=== PATIENT | female | born 1945 | race Caucasian/White ===

== ENCOUNTER 2016-12-26 12:02 | Emergency (ER) | payer MEDICARE ==
[2016-12-26 12:23] VITALS: RESP 18
[2016-12-26] MEDS ORDERED: SODIUM CHLORIDE 0.9% 1,000 ML IV STA ×3 (12:44→13:52)
[2016-12-26 13:03] LABS: Basophils % (A) 1 %; CH 31.2; CHCM 33.1; Eosinophils # (A) 0.1 k/uL (0-0.7); Eosinophils % (A) 2 %; HCT 45.8 % (34.0-46.0); HGB 14.6 gm/dL (11.4-16.0); Luc % (Auto) 2; Lymphocytes % (A) 18 %; MCH 30.2 pg (25.0-35.0); MCHC 31.9 g/dL (31.0-37.0); MCV 94.6 fL (80.0-100.0); Mean Platelet Volume 7.5; Monocytes # (A) 0.3 k/uL (0-1.0); Monocytes % (A) 6 %; Neutrophils # (A) 4.2 k/uL (1.3-7.7); Neutrophils % (A) 72 %; RBC 4.84 m/uL (3.80-5.40); WBC 5.8 k/uL (3.8-10.6); WBC (Perox) 5.58
[2016-12-26 13:06] LABS: Appearance,Urine Cloudy (Clear); Bacteria,Urine Rare /hpf; Bilirubin,Urine Negative (Negative); Glucose,Urine (UA) Negative (Negative); Ketones,Urine Trace (Negative); Leukocyte Esterase,Urine Large (Negative); Mucus,Urine Many /hpf; Nitrite,Urine Negative (Negative); PH, Urine 5.5 (5.0-8.0); Particle Count 17006; Protein,Urine 1+ (Negative); RBC,Urine 13 /hpf (0-5); Specific Gravity,Urine 1.024 (1.001-1.035); UA Billing (MACRO vs. MICRO) MICRO; WBC,Urine >182 /hpf (0-5)
[2016-12-26 13:17] LABS: ALT 25 U/L (9-52); AST 25 U/L (14-36); Alkaline Phosphatase 77 U/L (38-126); Anion Gap 11 mmol/L; Blood Urea Nitrogen 18 mg/dL (7-17); Calcium 9.8 mg/dL (8.4-10.2); Carbon Dioxide 28 mmol/L (22-30); Chloride 104 mmol/L (98-107); Glucose 126 mg/dL (74-99); Magnesium 2.2 mg/dL (1.6-2.3); Non-African American GFR(MDRD) >60 (>60 ml/min/1.73 sqM); Potassium 3.8 mmol/L (3.5-5.1); Sodium 143 mmol/L (137-145); Total Bilirubin 0.7 mg/dL (0.2-1.3); Total Protein 7.4 g/dL (6.3-8.2)
[2016-12-26 13:24] LABS: Partial Thromboplastin Time 21.2 sec (22.0-30.0); Prothrombin Time 10.2 sec (9.0-12.0)
[2016-12-26 13:25] LABS: Creatine Kinase 76 U/L (30-135)
[2016-12-26 13:28] LABS: Glucose,Whole Blood 133 mg/dL (75-99)
[2016-12-26 13:38] LABS: Creatine Kinase MB 0.5 ng/mL (0.0-2.4); Troponin I <0.012 ng/mL (0.000-0.034)
--- NOTE | 2016-12-26 13:46 | ED ---
General Adult HPI - General Chief complaint: Syncope Stated complaint: syncope Time Seen by Provider: 12/26/16 12:44 Source: patient, RN notes reviewed, old records reviewed Mode of arrival: ambulatory Limitations: no limitations - History of Present Illness Initial comments: This is a 71-year-old female to the ER status post syncopal event, patient was doing some crocheting class and became lightheaded and dizzy. First and patient 's friends she recoup, she was lowered to the ground an was apparently passed out for her own 5 minutes. No seizure-like activity. Patient states he follow little lightheaded but this time and now denies headache chest pain shortness of breath or abdominal pain. She does have a remote history of syncope with about 4 episodes in the last 6 years, no prior evaluation. - Related Data Home Medications Medication Instructions Recorded Confirmed Cyanocobalamin [Vitamin B-12] 500 mcg PO DAILY 12/26/16 12/26/16 Allergies Allergy/AdvReac Type Severity Reaction Status Date / Time No Known Allergies Allergy Unverified 12/26/16 13:06 Review of Systems ROS Statement: Those systems with pertinent positive or pertinent negative responses have been documented in the HPI. ROS Other: All systems not noted in ROS Statement are negative. Past Medical History Past Medical History: No Reported History History of Any Multi-Drug Resistant Organisms: None Reported Past Surgical History: Appendectomy, Hysterectomy Past Psychological History: No Psychological Hx Reported Smoking Status: Never smoker Past Alcohol Use History: Occasional Past Drug Use History: None Reported General Exam Limitations: no limitations General appearance: alert, in no apparent distress Head exam: Present: atraumatic, normocephalic, normal inspection Eye exam: Present: normal appearance, PERRL, EOMI. Absent: scleral icterus, conjunctival injection, periorbital swelling ENT exam: Present: normal exam, mucous membranes moist Neck exam: Present: normal inspection. Absent: tenderness, meningismus, lymphadenopathy Respiratory exam: Present: normal lung sounds bilaterally. Absent: respiratory distress, wheezes, rales, rhonchi, stridor Cardiovascular Exam: Present: regular rate, normal rhythm, normal heart sounds. Absent: systolic murmur, diastolic murmur, rubs, gallop, clicks GI/Abdominal exam: Present: soft, normal bowel sounds. Absent: distended, tenderness, guarding, rebound, rigid Extremities exam: Present: normal inspection, full ROM, normal capillary refill. Absent: tenderness, pedal edema, joint swelling, calf tenderness Back exam: Present: normal inspection Neurological exam: Present: alert, oriented X3, CN II-XII intact Psychiatric exam: Present: normal affect, normal mood Skin exam: Present: warm, dry, intact, normal color. Absent: rash Course Vital Signs 12/26/16 12/26/16 12/26/16 12:20 12:41 13:15 Temperature 97.9 F Pulse Rate 58 L 58 L Pulse Rate [ 62 Varnisher ] Respiratory 18 18 Rate Blood Pressure 120/70 122/61 O2 Sat by Pulse 99 Oximetry 12/26/16 12/26/16 13:47 14:49 Temperature Pulse Rate 54 L 56 L Pulse Rate [ Varnisher ] Respiratory 18 18 Rate Blood Pressure 126/61 149/72 O2 Sat by Pulse 98 100 Oximetry Medical Decision Making - Medical Decision Making 71 female presents today with syncopal episode weakness. Patient at this time is feeling improved with IV hydration, positive urine check infection, I will she with appropriate antibiotics for discharge home - Lab Data Result diagrams: 12/26/16 12:35 12/26/16 12:35 Lab Results 12/26/16 12/26/16 12/26/16 Range/Units 12:34 12:35 12:35 WBC 5.8 (3.8-10.6) k/uL RBC 4.84 (3.80-5.40) m/uL Hgb 14.6 (11.4-16.0) gm/dL Hct 45.8 (34.0-46.0) % MCV 94.6 (80.0-100.0) fL MCH 30.2 (25.0-35.0) pg MCHC 31.9 (31.0-37.0) g/dL RDW 13.0 (11.5-15.5) % Plt Count 264 (150-450) k/uL Neutrophils % 72 % Lymphocytes % 18 % Monocytes % 6 % Eosinophils % 2 % Basophils % 1 % Neutrophils # 4.2 (1.3-7.7) k/uL Lymphocytes # 1.0 (1.0-4.8) k/uL Monocytes # 0.3 (0-1.0) k/uL Eosinophils # 0.1 (0-0.7) k/uL Basophils # 0.0 (0-0.2) k/uL PT (9.0-12.0) sec INR (<1.1) APTT (22.0-30.0) sec D-Dimer (<0.60) mg/L FEU Sodium (137-145) mmol/L Potassium (3.5-5.1) mmol/L Chloride (98-107) mmol/L Carbon Dioxide (22-30) mmol/L Anion Gap mmol/L BUN (7-17) mg/dL Creatinine (0.52-1.04) mg/dL Est GFR (MDRD) Af Amer (>60 ml/min/1.73 sqM) Est GFR (MDRD) Non-Af (>60 ml/min/1.73 sqM) Glucose (74-99) mg/dL POC Glucose (mg/dL) 133 H (75-99) mg/dL POC Glu Mental Health Practitioner ID Anger, Kasie Calcium (8.4-10.2) mg/dL Magnesium (1.6-2.3) mg/dL Total Bilirubin (0.2-1.3) mg/dL AST (14-36) U/L ALT (9-52) U/L Alkaline Phosphatase (38-126) U/L Total Creatine Kinase 76 (30-135) U/L CK-MB (CK-2) 0.5 (0.0-2.4) ng/mL CK-MB (CK-2) Rel Index 0.7 Troponin I <0.012 (0.000-0.034) ng/mL Total Protein (6.3-8.2) g/dL Albumin (3.5-5.0) g/dL Urine Color Urine Appearance (Clear) Urine pH (5.0-8.0) Ur Specific [place] (1.001-1.035) Urine Protein (Negative) Urine Glucose (UA) (Negative) Urine Ketones (Negative) Urine Blood (Negative) Urine Nitrite (Negative) Urine Bilirubin (Negative) Urine Urobilinogen (<2.0) mg/dL Ur Leukocyte Esterase (Negative) Urine RBC (0-5) /hpf Urine WBC (0-5) /hpf Urine Bacteria (None) /hpf Hyaline Casts (0-2) /lpf Urine Mucus (None) /hpf 05/07/0412/26/16 12/26/16 Range/Units 12:35 12:35 12:35 WBC (3.8-10.6) k/uL RBC (3.80-5.40) m/uL Hgb (11.4-16.0) gm/dL Hct (34.0-46.0) % MCV (80.0-100.0) fL MCH (25.0-35.0) pg MCHC (31.0-37.0) g/dL RDW (11.5-15.5) % Plt Count (150-450) k/uL Neutrophils % % Lymphocytes % % Monocytes % % Eosinophils % % Basophils % % Neutrophils # (1.3-7.7) k/uL Lymphocytes # (1.0-4.8) k/uL Monocytes # (0-1.0) k/uL Eosinophils # (0-0.7) k/uL Basophils # (0-0.2) k/uL PT 10.2 (9.0-12.0) sec INR 1.0 (<1.1) APTT 21.2 L (22.0-30.0) sec D-Dimer 0.29 (<0.60) mg/L FEU Sodium 143 (137-145) mmol/L Potassium 3.8 (3.5-5.1) mmol/L Chloride 104 (98-107) mmol/L Carbon Dioxide 28 (22-30) mmol/L Anion Gap 11 mmol/L BUN 18 H (7-17) mg/dL Creatinine 0.70 (0.52-1.04) mg/dL Est GFR (MDRD) Af Amer >60 (>60 ml/min/1.73 sqM) Est GFR (MDRD) Non-Af >60 (>60 ml/min/1.73 sqM) Glucose 126 H (74-99) mg/dL POC Glucose (mg/dL) (75-99) mg/dL POC Glu Mental Health Practitioner ID Calcium 9.8 (8.4-10.2) mg/dL Magnesium 2.2 (1.6-2.3) mg/dL Total Bilirubin 0.7 (0.2-1.3) mg/dL AST 25 (14-36) U/L ALT 25 (9-52) U/L Alkaline Phosphatase 77 (38-126) U/L Total Creatine Kinase (30-135) U/L CK-MB (CK-2) (0.0-2.4) ng/mL CK-MB (CK-2) Rel Index Troponin I (0.000-0.034) ng/mL Total Protein 7.4 (6.3-8.2) g/dL Albumin 4.4 (3.5-5.0) g/dL Urine Color Yellow Urine Appearance Cloudy H (Clear) Urine pH 5.5 (5.0-8.0) Ur Specific [place] 1.024 (1.001-1.035) Urine Protein 1+ H (Negative) Urine Glucose (UA) Negative (Negative) Urine Ketones Trace H (Negative) Urine Blood Small H (Negative) Urine Nitrite Negative (Negative) Urine Bilirubin Negative (Negative) Urine Urobilinogen 2.0 (<2.0) mg/dL Ur Leukocyte Esterase Large H (Negative) Urine RBC 13 H (0-5) /hpf Urine WBC >182 H (0-5) /hpf Urine Bacteria Rare H (None) /hpf Hyaline Casts 18 H (0-2) /lpf Urine Mucus Many H (None) /hpf Disposition Clinical Impression: Vasovagal syncope, UTI (urinary tract infection), Dehydration Disposition: HOME SELF-CARE Condition: Good Instructions: Urinary Tract Infection in Women (ED), Dehydration (ED) Referrals: Darius Moore MD [Primary Care Provider] - 1-2 days
[2016-12-26 15:42] VITALS: BP 134/75; PULSE 57; TEMP 97.6
== END 2016-12-26 15:45 | disposition home or self-care (01) ==
LOC: EC 12:02
DX: E86.0 Dehydration (principal); N39.0 Urinary tract infection, site not specified; R55 Syncope and collapse; Z79.899 Other long term (current) drug therapy
CPT/HCPCS: 36415; 93005; 85379; 80053; 82550; 82553; 83735; 84484; 85025; 85610; 85730; 81001; 99284; 96365; 96361; J0696

== ENCOUNTER → 2019-02-26 | Outpatient (CLI) | payer MEDICARE ==
--- NOTE | 2019-03-01 07:44 | MM ---
Reason for exam: clinical finding. History: Benign excisional biopsy, 1989. Implants in both breasts. Indicated problem(s): breast implant problem and pain in both breasts. Palpable abnormality in the right breast. Physical Findings: Breast exam performed by Dr. Mayer. MG Diag Mamm Implants TONYA w CAD Bilateral CC, MLO, and ID view(s) were taken. No prior studies available for comparison. The breast tissue is heterogeneously dense. This may lower the sensitivity of mammography. Finding: There is a 7 mm circumscribed lobulated mass in the lower inner quadrant, middle position of the left breast. Bilateral breast prothesis, may have calcification on right. These may have small localized ruptures adjacent to prothesis. These results were verbally communicated with the patient and result sheet given to the patient on 02/26/19. ASSESSMENT: Probably benign, BI-RAD 3 RECOMMENDATION: Follow-up diagnostic mammogram of the left breast in 6 months.
== END | disposition home or self-care (01) ==
LOC: RADMAMWWP 15:28
PROVIDERS: ATTEND Surgery
DX: N64.4 Mastodynia (principal); Z98.82 Breast implant status
CPT/HCPCS: 77066

== ENCOUNTER → 2019-02-26 | Outpatient (CLI) | payer MEDICARE ==
[2019-02-26 14:31] VITALS: BP 109/70; PULSE 61; RESP 16; TEMP 97.7; BMI 22.2
--- NOTE | 2019-02-26 15:24 | P.GSHP ---
History of Present Illness H&P Date: 02/26/19 Chief Complaint: mass in her right breast Rosalia is a 73-year-old white female who presents for breast evaluation. In June 2018 she noted a nodule in the inferior aspect of the right breast. Of importance is the fact that Janny had bilateral sub-glandular implants placed in 1977. She is uncertain as to whether these are saline or silicone implants. However, she has had pain related to the implants she states that she has had tenderness since the mid . The pain has increased since that time. She was told she had contractures around the implants. She did not have them removed as she did not want further surgery at that time. She has most recently had an MRI of both breasts which revealed the breast implants in the pectoral location and appeared to be saline with no rupture. Additionallysuspicious mass or abnormal enhancement of the right or left breast to suggest cancer. No focal abnormality was seen at the marker over the patient's present finding was noted. The patient also had an ultrasound of the right breast. This revealed an area of e xtracapsular calcification measuring 1.4 cm. There was a second similar area in the 5 o'clock position 8 cm from the nipple. Nothing on the ultrasound was seen to correspond with the 9:00 lesion in the breast which was felt to be palpable. Both the MRI and ultrasound recommended a mammogram be performed. The patient has not had a mammogram as she is concerned that this may result in rupture of the implants. Patient eats a vegan diet, and has recently noted hair loss. She recently started supplements Bioten and B12, Vit D and E. Family History: sister: esophageal sister: cervical brother: leukemia Hormonal History: menarche: 16 breast fed: yes, first at 21 menopause: Endometriosis resulting in a hysterectomy in her 30s, took one ovary BCP: 5 years hormones: 1-2 years Surgical history: 1. Bilateral breast implants 2. Appendectomy 3. Hysterectomy in 1 ovary removed 4. Laparoscopic surgery to remove endometrial tissue. Medical history: 1. back pain 2. scolosis 3. arthritis Social History: smoke: none alcohol: 1 glass/week drugs: none - Constitutional Constitutional: Denies chills, Denies fever - EENT Comment: cataract surgery, lasix surgery Ears: bilateral: tinnitus Ears, nose, mouth and throat: Denies headache, Denies sore throat - Breasts Breasts: bilateral: as per HPI - Cardiovascular Cardiovascular: Denies chest pain, Denies shortness of breath - Respiratory Respiratory: Denies cough, Denies 7 - Gastrointestinal Gastrointestinal: Denies abdominal pain, Denies diarrhea, Denies nausea, Denies vomiting - Genitourinary (Female) Comment: UTI Genitourinary: Denies dysuria, Denies hematuria - Menstruation Menstruation: Reports post hysterectomy - Musculoskeletal Comment: arthritis - Integumentary Comment: nickel, latex casue rash Integumentary: Reports rash, Denies pruritus - Psychiatric Psychiatric: Denies anxiety, Denies depression - Endocrine Endocrine: Denies fatigue, Denies weight change - Hematologic/Lymphatic Comment: none - Allergic/Immunologic Allergic/Immunologic: Reports as per HPI Past Medical History Past Medical History: No Reported History History of Any Multi-Drug Resistant Organisms: None Reported Past Surgical History: Appendectomy, Hysterectomy Past Psychological History: No Psychological Hx Reported Smoking Status: Never smoker Past Alcohol Use History: Occasional Past Drug Use History: None Reported Medications and Allergies Home Medications Medication Instructions Recorded Confirmed Type Cyanocobalamin [Vitamin B-12] 500 mcg PO DAILY 12/26/16 12/26/16 History Biotin 5,000 mcg PO DAILY 02/26/19 02/26/19 History Cholecalciferol (Vitamin D3) 2,000 unit PO DAILY 02/26/19 02/26/19 History [Vitamin D3] Vitamin B Complex 1 each PO DAILY 02/26/19 02/26/19 History Allergies Allergy/AdvReac Type Severity Reaction Status Date / Time Sulfa (Sulfonamide Allergy Swelling Unverified 02/26/19 14:34 Antibiotics) Surgical - Exam Vital Signs Temp Pulse Resp BP Pulse Ox 97.7 F 61 16 109/70 98 02/26/19 14:27 02/26/19 14:27 02/26/19 14:27 02/26/19 14:27 02/26/19 14:27 BMI 22.3 - General well developed, well nourished, no distress - Eyes normal ocular movement - ENT no hearing loss, no congestion - Neck no masses, trachea midline - Respiratory normal respiratory effort, clear to auscultation - Cardiovascular Rhythm: regular Heart Sounds: normal: S1, S2 - Abdomen Abdomen: soft, non tender, no guarding, no rigid, no rebound - Integumentary normal turgor - Neurologic no disoriented, no combative - Musculoskeletal normal gait, normal posture - Psychiatric oriented to time, oriented to person, oriented to place, speech is normal, memory intact Breast Exam: right breast:Multi-positional exam reveals implant in place, the breast is tender to palpation, at the 6 o'clock position there is increased fibroglandular tissue with no definite mass Right axilla: No adenopathy of concern Left breast: Multi-positional exam reveals implant in place, the breast is tender, fibroglandular tissue with fibrocystic changes no definite mass Left axilla: No adenopathy of concern Results MRI of the breast and ultrasound reviewed Assessment and Plan Assessment: Impression: 1. Bilateral breast implants with bilateral breast pain 2. Fibrocystic breast changes 3. Family history of cancer 4. DJD Plan: 1. bilateral breast mammogram 2. consult with plastic surgery I have discussed with the patient and her the options. These include close surveillance and I would recommend bilateral mammogram. Possible implant removal with breast lift in conjunction with plastic surgery. The patient is very health conscious. She and her are vegans and very concerned about health issues. She is very concerned about the implants rupturing. However, she is willing to try a mammogram. CC: Dr. Moore
== END ==
LOC: WWCWWP 13:47
PROVIDERS: ATTEND Surgery
DX: Z53.9 Procedure and treatment not carried out, unspecified reason (principal)

== ENCOUNTER → 2019-05-07 | Outpatient (CLI) | payer MEDICARE ==
[2019-05-07 13:23] VITALS: BP 128/84; PULSE 68; RESP 18; TEMP 97.8; BMI 21.7
== END ==
LOC: WWCWWP 12:26
PROVIDERS: ATTEND Surgery
DX: Z53.9 Procedure and treatment not carried out, unspecified reason (principal)